=== PATIENT | male | born 1950 | race Caucasian/White ===

== ENCOUNTER 2016-07-22 10:46 | Outpatient (CLI) | payer MEDICARE, BC ==
[~2016-07-22] VITALS: Ht 177.8 cm; Wt 120.5 kg
--- NOTE | ~2016-07-22 | HEMODYNAMI ---
PATIENT:REN KHAN MEDICAL RECORD: [id number] : 52 LOCATION:[facility] ADMISSION DATE: 07/22/16 Generatedon:07/22/201613:47 Patient name: REN KHAN Patient #: [id number] SSN: D OB: 1950 Date of study: 07/22/2016 Page: Of Hemodynamic Procedure Report Patient Data Patient Demographics Procedure consent was obtained First Name: REN Gender: Male Last Name: ERIN : 1950 Patient #: [id number] Age: 65 year(s) Race: Unknown Additional ID: [id number] Contact details [address]: [address] [place] [address] State: [place] City: [place] Zip code: [address] Admission Admission Data Admission Date: 07/22/2016 Admission Time: 10:46 Height (in.): 70 BSA: 2.35 (m2) Height (cm.): 177.8 BMI: 38.02 (kg/m2) Weight (lbs.): 265 Weight (kg.): 120.2 Procedure Procedure Types Cath Procedure Diagnostic Procedure LHC LHC w/Coronaries w/Grafts Miscellaneous Procedures Moderate Sedation up to 30 minutes Peripheral Cath Diagnostic Procedure Cath Peripheral Tgeaq-Cuaqckv-Aim-Off Procedure Description Procedure Date Procedure Date: 07/22/2016 Procedure Start Time: 13:19 Procedure End Time: 13:46 Procedure Staff Name Function Reji Beard MD Performing Physician Niya Barbosa RN Nurse Clifford Chambers RT Monitor Aj Kimbrough RT Scrub Procedure Data Cath Procedure Fluoroscopy Diagnostic fluoroscopy Total fluoroscopy Time: 5 time: 5 min min Diagnostic fluoroscopy Total fluoroscopy dose: dose: 1246 mGy 1246 mGy Contrast Material Contrast Material Type Amount (ml) Isovue 300 150 Entry Location Entry Primary Successful Side Size Upsize Upsize Entry Closure Succes sful Closure Location (Fr) 1 (Fr) 2 (Fr) Remarks Device Remarks Femoral Right 5 Fr Exoseal artery Estimated blood loss: 10 ml Diagnostic catheters Device Type Used For End Catheter Placement Cordis 5Fr Pigtail Procedure Catheter (MP) Cordis 5Fr JL 4.0 Procedure Catheter (MP) Diagnostic Infinity 5Fr Procedure AR MOD Catheter Diagnostic Infinity 5Fr Procedure IM catheter Procedure Complications No complications Procedure Medications Medication Administration Route Dosage Oxygen NC 2 l/min Heparin Flush Bag added to field 2 bags (1000units/500ml NS) Lidocaine 2% added to field 20 Versed 1 mg Fentanyl 50 mcg Versed 1 mg Fentanyl 50 mcg Versed 1 mg Fentanyl 50 mcg Versed 0.5 mg Fentanyl 25 mcg Versed 0.5 mg Fentanyl 25 mcg Hemodynamics Rest BSA: 2.35 (m2) O2 Consumption: Estimated: 258.24 (ml/min) O2 Consumption indexed : Estimated:109.89 (ml/min/m) Heart Rate: 52 (bpm) Pressure Samples Time Site Value (mmHg) Purpose Heart Use Rate(bpm) 13:25 LV 117/5,20 Snapshot 68 13:25 AO 117/59(82) Pullback 57 13:25 LV 120/4,21 Pullback 57 Gradients Valve Time Site 1 Site 2 Mean SEP/DFP Peak To Heart Use (mmHg) (sec/min) Peak Rate (mmHg) (bpm) Aortic 13:25 LV AO 9 17 3 57 120/4,21 117/59(82) Calculations Valve P-P Mean Valve Index Valve Source Name Gradient Area Flow (cm2) Aortic 3 9 3 9 Snapshots Pre Cath Intra NCS Post Cath Vital Signs Time Heart Resp SPO2 NIBP (mmHg) Rhythm Pain Sedation Rate (ipm) (%) Status Level (bpm) 12:57:08 59 17 97 151/77(122) NSR 0 (11) 10(A) , No pain 13:02:07 51 18 98 Measuring NSR 0 (11) 10(A) , No pain 13:02:22 51 18 98 151/75(120) NSR 0 (11) 10(A) , No pain 13:06:48 62 20 96 148/73(102) NSR 0 (11) 10(A) , No pain 13:11:47 53 18 96 Measuring NSR 0 (11) 10(A) , No pain 13:11:55 52 18 95 136/70(101) NSR 0 (11) 10(A) , No pain 13:16:17 53 16 98 127/66(98) NSR 0 (11) 9(A) , No pain 13:20:39 54 15 95 127/71(103) NSR 0 (11) 9(A) , No pain 13:24:59 55 16 95 122/67(101) NSR 0 (11) 9(A) , No pain 13:29:16 66 15 96 121/78(104) NSR 0 (11) 9(A) , No pain 13:33:34 64 16 95 132/69(112) NSR 0 (11) 9(A) , No pain 13:37:50 65 16 95 119/78(94) NSR 0 (11) 9(A) , No pain 13:41:08 59 16 96 130/75(104) NSR 0 (11) 9(A) , No pain 13:45:27 63 11 93 128/70(102) NSR 0 (11) 9(A) , No pain Medications Time Medication Route Dose Verified Delivered Reason Notes Effec tiveness by by 12:56:01 Oxygen NC 2 Reji Niya Per l/min Chirag Barbosa RN physician 12:56:11 Heparin Flush added 2 Reji Reji used for Bag to bags Chirag Beard MD procedure (1000units/500ml field NS) 12:56:19 Lidocaine 2% added 20ml Reji Reji used for to vial Chirag Beard MD procedure field 13:10:51 Versed 1 mg Reji Niya for Chirag Barbosa RN sedation 13:10:59 Fentanyl 50 Reji Niya for mcg Chirag Barbosa RN sedation 13:13:24 Versed 1 mg Reji Niya for Chirag Barbosa RN sedation 13:13:30 Fentanyl 50 Reji Niya for mcg Chirag Barbosa RN sedation 13:15:41 Versed 1 mg Reji Niya for Chirag Barbosa RN sedation 13:15:45 Fentanyl 50 Reji Niya for mcg Chirag Barbosa RN sedation 13:17:59 Versed 0.5 Reji Niya for mg Chirag Barbosa RN sedation 13:18:08 Fentanyl 25 Reji Niya for mcg Chirag Barbosa RN sedation 13:20:18 Versed 0.5 Reji Niya for mg Chirag Barbosa RN sedation 13:20:25 Fentanyl 25 Reji Núñez for mcg Chirag Barbosa RN sedation Procedure Log Time Note 12:25:30 Aj Kimbrough RT(R) sent for patient. Start room use. 12:37:31 Time tracking: Regular hours 12:37:34 Plan of Care:Hemodynamics will remain stable., Cardiac rhythm will remain stable., Comfort level will be maintained., Respiratory function will remain adequate., Patient/ family verbilizes understanding of procedure., Procedure tolerated without complication., Recovers from procedure without complications.. 12:47:42 Patient received from Pre/Post Procedure Room to CCL 2 Alert and oriented. Tansferred to table in Supine position. 12:47:43 Warm blankets applied, and roselyn hugger turned on for patient comfort. 12:47:44 Correct patient and procedure confirmed by team. 12:47:45 Signed procedure consent form obtained from patient. 12:47:46 ECG and BP/O2 sat monitors applied to patient. 12:47:56 Use device set Femoral Dx 12:48:11 Tegaderm 4 x 4 opened to sterile field. 12:48:12 Acist Hand Control opened to sterile field. 12:48:13 Acist Manifold opened to sterile field. 12:48:14 Acist Syringe opened to sterile field. 12:48:14 Bag Decanter opened to sterile field. 12:48:15 Medline Cath Pack opened to sterile field. 12:48:15 Terumo 5Fr [place] Sheath opened to sterile field. 12:48:16 St Rick 260cm J .035 wire opened to sterile field. 12:55:50 Vital chart was started 12:56:01 Oxygen 2 l/min NC was administered by Niya Barbosa RN; Per physician; 12:56:11 Heparin Flush Bag (1000units/500ml NS) 2 bags added to field was administered by Reji Beard MD; used for procedure; 12:56:19 Lidocaine 2% 20ml vial added to field was administered by Reji Beard MD; used for procedure; 13:05:41 Baseline sample Acquired. 13:05:48 Rhythm: sinus bradycardia 13:05:50 Full Disclosure recording started 13:09:53 H&P Date Dictated: 07/22/2016 New H&P dictated by physician.. 13:09:54 Pre-procedure instructions explained to patient. 13:09:55 Pre-op teaching completed and patient verbalized understanding. 13:09:56 Family in waiting room. 13:09:57 Patient NPO since Midnight. 13:09:58 Is the patient allergic to Iodine/contrast media? No. 13:10:00 Is patient on blood thinner?No 13:10:03 Patient diabetic? Yes. 13:10:05 If diabetic: On Metformin? Yes 13:10:06 If on Metformin: Last Dose? 07/20/2016 13:10:09 Previous problem with sedation/anesthesia? No ? 13:10:09 Snore? Yes 13:10:10 Sleep apnea? Yes 13:10:11 Deviated septum? No 13:10:13 Opens mouth fully? Yes 13:10:13 Sticks out tongue? Yes 13:10:17 Airway obstruction? Yes COPD 13:10:21 Dentures? Yes IN 13:10:24 Pre procedure: right dorsailis pedis pulse 1+ Palpable, but thready & weak; easily obliterated 13:10:28 Pre procedure: left dorsailis pedis pulse Doppler 13:10:30 Lab results completed and on chart. 13:10:34 Bilateral groins area was prepped with chlora-prep and draped in sterile fashion 13:10:35 Alarms reviewed by R. N. 13:10:35 Sharps counted by scrub and verified by R.N. 13:10:40 --------ALL STOP TIME OUT------ 13:10:41 Final Timeout: patient, procedure, and site verified with staff and physician. All members of the team are in agreement. 13:10:43 Bilateral groins site verified by team. 13:10:48 Physical assessment completed. ASA score P 2 - A patient with mild systemic disease as per Reji Beard MD. 13:10:50 Sedation plan: IV Moderate Sedation Versed, Fentanyl 13:10:51 Versed 1 mg was administered by Niya Barbosa RN; for sedation; 13:10:59 Fentanyl 50 mcg was administered by Niya Barbosa RN; for sedation; 13:13:24 Versed 1 mg was administered by Niya Barbosa RN; for sedation; 13:13:30 Fentanyl 50 mcg was administered by Niya Barbosa RN; for sedation; 13:15:41 Versed 1 mg was administered by Niya Barbosa RN; for sedation; 13:15:45 Fentanyl 50 mcg was administered by Niya Barbosa RN; for sedation; 13:17:59 Versed 0.5 mg was administered by Niya Barbosa RN; for sedation; 13:18:08 Fentanyl 25 mcg was administered by Niya Barbosa RN; for sedation; 13:19:20 Procedure started. 13:19:23 Local anesthetic to right femoral artery with Lidocaine 2% by Reji Beard MD.INITIAL ACCESS ONLY 13:20:18 Versed 0.5 mg was administered by Niya Barbosa RN; for sedation; 13:20:25 Fentanyl 25 mcg was administered by Niya Barbosa RN; for sedation; 13:20:43 Procedure type changed to Cath procedure, Diagnostic procedure, LHC, LHC w/Coronaries w/Grafts, Miscellaneous Procedures, Moderate Sedation up to 30 minutes, Peripheral Cath Diagnostic Procedure, Cath Peripheral, Qxdcm-Kdzkijp-Khw-Off 13:20:56 Patient Height : 177.8 cm 13:20:59 Patient Weight : 120.2 kg 13:21:11 A 5 Fr sheath was inserted into the Right Femoral artery 13:22:06 A Cordis 5Fr Pigtail Catheter (MP) was advanced over the wire and used for Procedure. 13:23:03 Abdominal Aortagram was performed. 13:23:56 Left leg runoff performed. 13:23:58 Right leg runoff performed. 13:24:00 Injector settings: Ml/sec: 10, Volume: 20, 13:25:07 Catheter advanced. 13:25:31 LV angiography performed. 13:25:33 LV gram done using TINEO 13:25:42 EF : 45 % 13:25:47 LV hemodynamics recorded. 13:25:50 Injector settings: Ml/sec: 10, Volume: 20, 13:26:55 Catheter exchanged over wire. 13:27:20 A Cordis 5Fr JL 4.0 Catheter (MP) was advanced over the wire and used for Procedure. 13:27:43 LCA angiography performed. 13:28:36 Catheter exchanged over wire. 13:28:44 Diagnostic Infinity 5Fr Multipack catheter opened to sterile field. 13:29:26 A Diagnostic Infinity 5Fr AR MOD Catheter was advanced over the wire and used for Procedure. 13:30:50 SVG to RCA angiography performed. 13:31:46 SVG to Diag angiography performed. 13:32:05 Split graft to OM also. 13:32:12 Catheter exchanged over wire. 13:32:49 A Diagnostic Infinity 5Fr IM catheter was advanced over the wire and used for Procedure. 13:35:08 HARRIS to LAD angiography performed. 13:36:20 Catheter exchanged over wire. 13:39:40 Cordis 5Fr Exoseal opened to sterile field. 13:39:53 Sheath removed intact; hemostasis achieved with Exoseal to the Right Femoral artery. 13:39:56 Procedure ended.(Physican Out) 13:40:11 Fluoroscopy time 05.00 minutes. 13:40:17 Fluoroscopy dose: 1246 mGy 13:40:17 Flurop Dose total: 1246 13:40:22 Contrast amount:Isovue 300 150ml. 13:40:24 Sharps counted by scrub and verified by R.N. 13:40:25 Insertion/operative site no bleeding no hematoma. 13:40:29 Post-op/insertion site Right Femoral artery dressed using a 4 x 4 and Tegaderm. 13:40:30 Post Procedure Pulses reassessed and unchanged 13:40:32 Post-procedure physical assessment completed. ASA score P 2 - A patient with mild systemic disease as per Reji Beard MD. 13:40:36 Post procedure rhythm: unchanged. 13:40:39 Estimated blood loss: 10 ml 13:41:11 Post procedure instruction explained to patient.Patient verbalizes understanding. 13:41:11 Patient needs reinforcement of post procedure teaching. 13:42:31 Procedure and supply charges have been captured, reviewed, submitted and are correct. 13:42:35 Procedure Complication : No complications 13:46:32 Vital chart was stopped 13:46:32 See physician's report for complete and final results. 13:46:34 Report given to Pre/Post Procedure Room. 13:46:37 Patient transfered to Pre/Post Procedure Room with Stretcher. 13:46:38 Procedure ended. 13:46:38 Full Disclosure recording stopped 13:46:43 End room use (Document Last) Device Usage Item Name Manufacture Quantity Catalog Hospital Part Current Minimal Lo t# / Number Charge Number Stock Stock Serial# Code Tegaderm 4 1 1626 [id number] 5 x 4 Acist Hand Acist 1 91650 725434 437186 953854 5 Control [employer] Acist Acist 1 10324 210874 819120 330295 5 Manifold [employer] Acist Acist 1 39997 266025 858994 799081 20 Syringe [employer] Bag Microtek 1 2002S 320804 65269 275465 5 [employer] Medline Cardinal 1 [id number] 258020 30899 276934 5 Cath Pack Health Terumo 5Fr Terumo 1 [id number] 530481 697366 527394 [address] Rick 1 [id number] 009350 822240 621637 30 260cm J .035 wire Cordis 5Fr Cardinal 1 [id number] 5 Pigtail Health Catheter (MP) Cordis 5Fr Cardinal 1 [id number] 5 JL 4.0 Health Catheter (MP) Diagnostic Cardinal 1 [id number] 566181 87221 242868 30 Infinity Health 5Fr Multipack catheter Diagnostic Cardinal 1 [id number] 825191 534194 739905 15 Infinity [employer] 5Fr AR MOD Catheter Diagnostic Cardinal 1 [id number] 744309 403469 612236 5 [facility] [facility] 5Fr IM catheter Cordis 5Fr Cardinal 1 EX500 218295 939048 785454 10 Market Force Information Signature Audit [place] Stage Time Signature Unsigned Intra-Procedure 07/22/2016 Clifford Chambers 1:47:00 PM RT(R) Signatures Monitor : Clifford Chambers RT Signature : Date : Time : [facility] [address] [place] [address]
--- NOTE | ~2016-07-22 | OP ---
PATIENT NAME: REN KHAN MEDICAL RECORD: [id number] :52 LOCATION:D.CAT ADMISSION DATE: SURGEON: DARI LONGO M.D. DATE OF OPERATION: 07/22/2016 REFERRING PHYSICIAN: Dr. Andrea Khan Jr. at [place], [place]. PROCEDURES PERFORMED: 1. Selective coronary angiography. 2. Left heart catheterization with ventriculogram. 3. Bypass angiography. 4. Left internal mammary injection. 5. Aortofemoral runoff. INDICATION: A 65-year-old gentleman who presents with symptoms of worsening dyspnea concerning for an anginal variant. His recent stress test revealed inferolateral defect. He has also been complaining of lifestyle-limiting claudication involving his left hip. EQUIPMENT USED: A 5-Welsh JL4, AR modified catheter, mammary catheter, pigtail catheter. TECHNIQUE: A 5-Welsh sheath was inserted in retrograde fashion in the right common femoral artery. Next, selective coronary angiography was performed in standard views using 5-Welsh JL4 and AR modified catheters. Bypass angiography was performed using an AR modified catheter. The internal mammary was selected with internal mammary catheter. Left heart catheterization performed using pigtail catheter. Next, the pigtail catheter was pulled down to the level of T12. Power injection was then performed to visualize the distal aorta. Next, the catheter was pulled down to the level of the aortic bifurcation. At this point, a right and left lower extremity angiograms were performed. CORONARY ANATOMY: 1. Left main: Left main trunk is moderate in caliber. It gives rise to the LAD and circumflex. There is a 90% ostial stenosis. 2. LAD: This vessel is 100% occluded in the proximal segment. 3. Circumflex: This vessel is moderate in caliber. The first lateral branch is 100% occluded, but there is competitive flow seen to this area. The AV continuation is a moderate-caliber vessel extending through the AV groove. 4. Right coronary: This vessel is 100% occluded at the origin. 5. Saphenous vein graft to the PDA. This graft is large in caliber. It is widely patent. It fills both PDA and posterolateral branch. 6. Saphenous vein graft to obtuse marginal branch. This is actually a T-graft. It touches down on the first diagonal branch as well as the first lateral branch of the circumflex. Both limbs are widely patent. However, the AV circumflex does not fill from the circumflex graft. 7. Left internal mammary artery to LAD: This graft is widely patent throughout its course. It fills both the LAD and first diagonal branch. Both limbs are widely patent. 8. Left ventricle: Left ventricle is normal size. There is mild hypokinesis noted. Estimated ejection fraction is in the order of 45%. AORTOFEMORAL RUNOFF: The distal aorta is of good caliber. Each kidney received single arterial supply. There is no evidence of renal artery stenosis. OPERATIVE REPORT [id number] REN KHAN Left common iliac artery is large in caliber and widely patent. Left common femoral artery is large in caliber and widely patent. Left superficial artery is large in caliber and widely patent. Left popliteal artery is large in caliber and widely patent. There appears to be 3-vessel runoff below the knee. Right common iliac artery is large in caliber and widely patent. Right common femoral artery is large in caliber and widely patent. Right superficial artery is large in caliber and widely patent. Right popliteal artery is large in caliber and widely patent. Below the knee, there appears to be 2-vessel runoff. IMPRESSION: 1. A 90% stenosis of the left main. The continuation of the circumflex appears to be unprotected by the bypass graft. 2. No significant evidence of any peripheral vascular disease. I suspect his pain may be from his lower back. RECOMMENDATIONS: I will likely stage and bring him back for PTCA of the left main in the upcoming week. TRANSINT:[id number] Voice Confirmation ID: [id number] DOCUMENT ID: [id number] DARI LONGO M.D. CC: [id number] DICTATION DATE: 07/22/16 1352 FOOT CASTER: 07/22/16 2339 DEP CLI 07/22/16 [facility] [address] [place] [address]
[2016-07-22] MEDS ORDERED: GLUCOPHAGE500 MG PO (11:06)
[2016-07-22] MEDS ORDERED: K-DUR20 MEQ PO (11:07)
[2016-07-22] MEDS ORDERED: NEURONTIN 300300 MG PO (11:07)
[2016-07-22] MEDS ORDERED: LANOXIN125 MCG PO (11:07)
[2016-07-22] MEDS ORDERED: COREG25 MG PO (11:07)
[2016-07-22] MEDS ORDERED: FUROSEMIDE40 MG PO (11:08)
[2016-07-22] MEDS ORDERED: ALDACTONE25 MG PO (11:08)
[2016-07-22] MEDS ORDERED: CARDURA4 MG PO (11:08)
[2016-07-22] MEDS ORDERED: ZOCOR20 MG PO (11:09)
[2016-07-22] MEDS ORDERED: ZOLOFT50 MG PO (11:09)
[2016-07-22] MEDS ORDERED: PERCOCET 10/3251 TA1 PO (11:10)
[2016-07-22 11:16] VITALS: BP 160/62; Ht 177.8 cm; Wt 120.5 kg
[2016-07-22 11:30] LABS: BASOPHILS 0.5 % (0-2); EOSINOPHILS 4.6 % (0-7); HEMOGLOBIN 14.3 g/dL (13.5-17.5); IMMATURE GRANULOCYTES 0.1 % (0-5); LYMPHOCYTES 28.4 % (15-50); MCH 29.6 pg (26.0-34.0); MCHC 32.5 g/dL (31.0-37.0); MCV 91.1 fL (80.0-100.0); MEAN PLATELET VOLUME 9.9 fL (7.4-10.4); MONOCYTES 6.4 % (2-11); PLATELET COUNT 187 10x3/uL (130-400); RBC 4.83 10x6/uL (4.20-6.10); RDW 14.3 % (11.5-14.5); WBC 7.5 10x3/uL (4.8-10.8)
[2016-07-22 12:02] LABS: CALC OSMOLALITY 279 mosm/kg (275-300); CALCIUM 8.3 mg/dL (8.5-10.1); CARBON DIOXIDE 25.8 mmol/L (21.0-32.0); CHLORIDE - SERUM 105 mmol/L (98-107); GLUCOSE 102 mg/dL (74-106); POTASSIUM - SERUM 4.4 mmol/L (3.5-5.1); SODIUM 140 mmol/L (136-145); UREA NITROGEN 14 mg/dL (7-18); eGFR NON AFRICAN AMERICAN 80 mL/min (90-120)
--- NOTE | 2016-07-22 14:14 | NUR ---
1400 RECIEVED TO ROOM VIA STRETCHER FROM INFORMATION TECHNOLOGY ACCOUNT MANAGER WITH VSS CHEST PAIN DENIED. 5 FR EXOSEAL R/GROIN CDI NO BLEEDING NO HEMATOMA NOTED FAMILY AT SIDE.
--- NOTE | 2016-07-22 19:37 | NUR ---
1620-IV D'C WITH CATH TIP INTACT, WRITTEN AND VERBAL INSTRUCTIONS GIVEN TO PT AND -VERBAL UNDERSTANDING NOTED, DENIES PAIN OR FURTHUR NEEDS
== END 2016-07-22 16:30 | disposition home or self-care (01) ==
LOC: D.CATH 10:46
PROVIDERS: Internal Medicine Cardiovascular Disease
DX: I25.119 Atherosclerotic heart disease of native coronary artery with unspecified angina pectoris (principal); I70.213 Atherosclerosis of native arteries of extremities with intermittent claudication, bilateral legs; I10 Essential (primary) hypertension; E11.9 Type 2 diabetes mellitus without complications; E78.5 Hyperlipidemia, unspecified; Z01.812 Encounter for preprocedural laboratory examination